=== PATIENT | male | born 1950 | race Caucasian/White ===

== ENCOUNTER 2018-04-18 16:58 | Emergency (ER) | payer BC, SELFPAY ==
[2018-04-18 17:05] VITALS: BP 174/55; PULSE 54; RESP 18; TEMP 37.4; O2SAT 98
--- NOTE | 2018-04-18 17:17 | DI.CT_ITS ---
SYMPTOMS/DIAGNOSIS: FALL, HIT LT SIDE OF HEAD, DOUBLE VISION LT EYE NONCONTRAST HEAD CT: No intracranial hemorrhage or skull fracture is seen. There is mild atrophy. The ventricles are normal in size. There is soft tissue swelling above the left orbit. The mastoid air cells appear clear. There is some mucous retention at the floor of the right maxillary sinus. IMPRESSION: Soft tissue swelling above the left orbit. No acute intracranial abnormality. CT CERVICAL SPINE: There is no evidence of fracture or subluxation. Degenerative disc changes are noted throughout, prominent at C4-5 through C6-7. There is neural foraminal narrowing at these levels. There is some reversal of the normal cervical lordosis secondary to degenerative changes. There are also prominent facet joint degenerative changes, greatest at C3-4. The airway appears intact. The lung apices appear clear. IMPRESSION: Degenerative changes. No acute abnormality.
--- NOTE | 2018-04-18 17:20 | W.ED.GENAD ---
Discharge Plan Disposition Patient Disposition: HOME Condition: Good Discharge Details Chief Complaint: EyeProblem Clinical Impression: Fall, Double vision Primary Care Provider: Christine Maldonado ED Provider: Balwinder Peraza Home Meds and New Rx's Prescriptions: No Action simvastatin 10 mg Tablet 10 mg PO QPM RF: 0 tamsulosin 0.4 mg Capsule 1 tab PO DAILY RF: 0 hydrochlorothiazide 25 mg Tablet 25 mg PO DAILY RF: 0 lisinopril-hydrochlorothiazide 10-12.5 mg Tablet RF: 0 Discharge Instructions Instructions: [facility] (ED) Additional Instructions: Please follow-up immediately with the study specialist. Please call them Saturday morning. If you notice any worsening of your symptoms, or any new symptoms such as vomiting, diarrhea, fever, chills, shortness of breath, chest pain, numbness, weakness, or fainting , please return immediately to the emergency department for reevaluation. Please follow up with your primary care provider as soon as possible for reassessment and reevaluation. As always, it was a pleasure participating in your medical care today. Referrals: [facility] [OTHER] - Medical Decision Making This is a very pleasant 68-year-old male who presents for evaluation of double vision in his left eye only. It began when he fell roughly 10-15 feet off of a ladder, he had no loss of consciousness but he did scrape the right side of his face against a ladder. He also complains of a small amount of pain over his fourth toe on his right foot. Physical exam demonstrates no red flags of neurologic deficit, hemotympanum, or other abnormalities on limited bedside ocular ultrasound or physical exam. Patient does though have subjective double vision in his left eye on exam. The remainder of his exam is otherwise benign and unremarkable. We will get a CT scan of his head and neck, and x-ray of his foot to rule out any acute process. I feel that the patient will benefit from ophthalmology referral pending workup. 6:[address] scan of the head and neck is negative for any acute process. The patient demonstrates no neurologic deficits. No evidence of bleeding behind the eye, no signs of entrapment, no evidence of intracranial bleed. X-ray of the foot is negative for acute process. I do feel for the foot patient developed a mild bruise secondary to the fall, but no acute fracture. Recommend continued ice, Tylenol, and Motrin. Regards to the double vision with no acute neurologic process identified on exam or imaging, I feel he can be discharged with close ophthalmology follow-up. I feel his symptoms are most likely peripheral in origin. With no evidence of hyphema, retinal detachment, or other acute process on CT imaging I feel that close follow-up is reasonable. I have extensively reviewed the treatment plan and discharge instructions with the patient and their family. I have addressed all patient concerns at this time. The patient and family was made aware of what symptoms to monitor for that would warrant a return to the emergency department. Discussed the plan with the patient and family, they demonstrate verbal understanding and agreement with our assessment and plan at this time. Ocular US Exam type: diagnostic\par Indication for exam: vision complaint Views obtained: Eye transverse and longitudinal Findings and interpretations: all views were adequate. Retinal contour was normal. Vitreous body was anechoic. Lens was well positioned. No evidence of lens dislocation or retinal detachment. Optic nerve was measured and found to be less than 5mm. The patient tolerated the procedure well and there were no complications. COMPARISON: No relevant prior studies available. FINDINGS: Bones/joints: Degenerative changes in the tarsal bones There is no evidence of acute fracture.. There is no evidence of malalignment or dislocation. Soft tissues: Normal. IMPRESSION: There is no evidence of acute fracture.. Dictated and Authenticated by: Roxie Mccray MD. COMPARISON: No relevant prior studies available. FINDINGS: Brain: No acute intracranial hemorrhage. There is mild diffuse heterogeneity of the white matter attenuation, consistent with chronic white matter ischemic changes. Ventricles: Normal. No ventriculomegaly. Bones/joints: Normal. No acute fracture. Sinuses: Mucosal thickening in the right maxillary sinus may represent mild sinusitis Mastoid air cells: Normal as visualized. No mastoid effusion. Soft tissues: Extracalvarial soft tissue swelling anteriorly on the left. IMPRESSION: 1. Extracalvarial soft tissue swelling anteriorly on the left. 2. No acute intracranial hemorrhage. COMPARISON: No relevant prior studies available. FINDINGS: Vertebrae: No acute fracture of the cervical spine. No subluxation or dislocation of the cervical spine. Anterior osteophyte formation C4-C7 Degenerative changes in the facets at multiple levels Degenerative changes at C1/C2 Discs/Spinal canal/Neural foramina: Intervertebral disc space narrowing C4-C7 may represent degenerative disc disease.. Posterior osteophyte formation C3 to -C7 Soft tissues: Unremarkable. Thyroid: The thyroid is unremarkable Lungs: Lung apices are normal. IMPRESSION: 1. No acute fracture of the cervical spine. 2. No subluxation or dislocation of the cervical spine. 3. Intervertebral disc space narrowing C4-C7 may represent degenerative disc disease. Recommend MRI if clinically indicated. Thank you for allowing us to participate in the care of your patient. HPI General Date/Time Provider Initiated Documentation: 04/18/18 17:00. HPI Narrative: This is a pleasant 68-year-old male with no significant past medical history except for high blood pressure and high cholesterol who presents today for evaluation after a fall. The patient states that he was roughly 15 feet off the ground when he fell off a ladder, hit the left side of his face on a ladder, as well as hitting his fourth toe on his right foot. This occurred 3 days ago. He has been doing fine since then except he has noticed some double vision only in his left eye when the right eye is closed. He denies any headache, neck pain, numbness, tingling, weakness, chest pain, shortness of breath, arm neck or shoulder pain. He denies any leg, reese, femur, or pelvic pain. He does have pain near the fourth toe. He also admits to some mild swelling there. Patient denies seeing any dark curtains over his vision, lightning spots, tinnitus, or other complaints. No other modifying factors. He is not on any blood thinners. He was sent by his primary care provider today for further evaluation after his history of complaints. Related Data Home Medications Medication Instructions Recorded Confirmed hydrochlorothiazide 25 mg PO DAILY 04/18/18 lisinopril-hydrochlorothiazide 04/18/18 simvastatin 10 mg PO QPM 04/18/18 04/18/18 tamsulosin 1 tab PO DAILY 04/18/18 04/18/18 Allergies Allergy/AdvReac Type Severity Reaction Status Date / Time No Known Allergies Allergy Unverified 04/18/18 17:09 General Stated Complaint: EyeProblem CARLOS: 3 Review of Systems Review of Systems All systems reviewed & are unremarkable except as noted in HPI and below PFSH Social History Smoking/Tobacco Use Status: Never Exam Narrative Exam Narrative: 1.Const: Well-nourished, Well-developed, appearing stated age 2.Eyes: PERRL, no conjunctival injection, and symmetrical lids. 3.ENT: Atraumatic external nose and ears. Moist MM. Neck: Symmetric, trachea midline, No thyromegaly. There is no evidence of raccoon eyes, reyes sign, CSF rhinorrhea, mastoid tenderness, cranial crepitus, hemotympanum, exophthalmos, or hyphema. Patient demonstrates intact dentition with no signs of tooth avulsion or fracture, no signs of jaw deformity, no evidence of a LeFort's fracture, with an intact palate, nose and orbital region. There is no evidence of a nasal septal hematoma. No proptosis. Jaw closes symmetrically. Airway is clear. Eye: EOMI, PERRL, Peripheral vision intact. No nystagmus. Fundoscopic exam shows normal optic discs and normal vasculature. No external signs of preseptal cellulitis, no redness around the eye, no proptosis. No hyphema, no signs of trauma around the eye, no periorbital emphysema. Visual acuity as documented in chart. 4.CVS regular rate and rhythm, Normal s1 and s2. No murmurs, carotid bruits, rubs, or gallops. Radial pulses 2+ bilaterally and symmetric. Dorsalis pedis pulses 2+ bilaterally and symmetric. 2+ capillary refill. No evidence of distant heart sounds. No extremity edema. No evidence of gross hemorrhage. 5.RESP: Airway clear, no obstructions. No abrasions or ecchymosis. Chest movement symmetric with respirations. No chest wall tenderness. Trachea midline. No crepitus. No step offs. No paradoxical movements. Lungs are clear to auscultation bilaterally. No rales, rhonchi, wheezing or stridor. Breath sound symmetric. No Sucking chest wounds. No clinical evidence of significant chest trauma. 6.GI: Soft, Nontender/Nondistended, No hepatosplenomegaly. No guarding or rebound. 7.MSK: Normocephalic/Atraumatic, Extremities w/o deformity or ttp No cyanosis or clubbing, Normal movement of all extremities. Minimal swelling over the fourth toe on the right foot. No evidence of deformity, or bleeding. Normal sensation throughout. Brisk capillary refill no midline tenderness to palpation over the CTLS spine. Normal ROM in flexion, extension, side bend, and rotation. Patient has +5 out of 5 strength in the lower extremities in dorsiflexion and plantarflexion, knee flexion and extension, hip flexion and extension. There is +2 over 2 dorsalis pedis pulses bilaterally. There is normal sensation to the skin with light touch at the foot, knee, and hip. Normal saddle sensation. Good sensation over the deep sural nerve area bilaterally. Rectal exam deferred. Reflexes are +2 over 4 in the patellar reflex bilaterally. +5 out of 5 strength in the medial, ulnar, radial nerve distribution bilaterally in the hands as well as intact light touch sensation to these dermatomes on the hands 8.Skin: Warm, Dry. No rashes or lesions. Bruises noted over the left side of the patient's face with a small superficial abrasion. 9.Neuro: topography technician II-XII grossly intact. Sensation grossly intact, no focal neurologic deficits. All 6 cardinal planes of vision are fully intact. No evidence of rotatory or vertical nystagmus. The patient demonstrated a normal [id number], good dexterity. There was no evidence of dysdiadochokinesia. Patient was able to ambulate without difficulty. There was no wide-based gait. Romberg, and [id number] are both normal on testing. Sensation was intact bilaterally as well as muscle strength bilaterally for all extremities. Patient was able to verbalize butter cup with no slurring, or miss pronunciation. 10.Psych: (AAO) x3. Appropriate mood and affect Course Vital Signs Temperature 37.4 C 04/18/18 17:05 Pulse 54 L 04/18/18 17:05 Respiratory Rate 18 04/18/18 17:05 Blood Pressure 174/55 H 04/18/18 17:05 Pulse Oximetry 98 04/18/18 17:05 Temperature 37.4 C 04/18/18 17:05 Temperature Source Temporal Artery Scan 04/18/18 17:05 Pulse 54 L 04/18/18 17:05 Respiratory Rate 18 04/18/18 17:05 Blood Pressure 174/55 H 04/18/18 17:05 Blood Pressure Position Sitting 04/18/18 17:05 Pulse Oximetry 98 04/18/18 17:05 Oxygen Delivery Method Room Air 04/18/18 17:05 Oxygen Flow Rate 0 04/18/18 17:05
--- NOTE | 2018-04-18 17:30 | DI.RAD_ITS ---
SYMPTOMS/DIAGNOSIS: PAIN AT 4TH TOE RIGHT FOOT: No fracture or dislocation is seen. Degenerative changes are noted at the first MTP joint. There are ossicle adjacent to the cuboid. IMPRESSION: No acute abnormality.
--- NOTE | 2018-04-18 18:02 | DI.VRAD_ITS ---
EXAM: XR Right Foot Complete, 3 or more Views EXAM DATE/TIME: 04/18/2018 5:31 PM CLINICAL HISTORY: 68 years old, male; Pain; Foot; Right; Patient HX: Pain at 4th toe TECHNIQUE: XR Right foot 3 or more views. COMPARISON: No relevant prior studies available. FINDINGS: Bones/joints: Degenerative changes in the tarsal bones There is no evidence of acute fracture.. There is no evidence of malalignment or dislocation. Soft tissues: Normal. IMPRESSION: There is no evidence of acute fracture.. Dictated and Authenticated by: Roxie Mccray MD. Ordering:ANAID Britt MD
--- NOTE | 2018-04-18 18:07 | DI.VRAD_ITS ---
EXAM: CT Head Without Contrast EXAM DATE/TIME: 04/18/2018 5:18 PM CLINICAL HISTORY: 68 years old, male; Injury or trauma; Fall; Initial encounter; Blunt trauma; Injury details: Fell, hit left head; Patient HX: Fell, hit left head, bruising to left eye orbit; Additional info: Double vision in left eye TECHNIQUE: Axial computed tomography images of the head/brain without contrast. Coronal and sagittal reformatted images were created and reviewed. COMPARISON: No relevant prior studies available. FINDINGS: Brain: No acute intracranial hemorrhage. There is mild diffuse heterogeneity of the white matter attenuation, consistent with chronic white matter ischemic changes. Ventricles: Normal. No ventriculomegaly. Bones/joints: Normal. No acute fracture. Sinuses: Mucosal thickening in the right maxillary sinus may represent mild sinusitis Mastoid air cells: Normal as visualized. No mastoid effusion. Soft tissues: Extracalvarial soft tissue swelling anteriorly on the left. IMPRESSION: 1. Extracalvarial soft tissue swelling anteriorly on the left. 2. No acute intracranial hemorrhage. EXAM: CT Cervical Spine Without Contrast EXAM DATE/TIME: 04/18/2018 5:18 PM CLINICAL HISTORY: 68 years old, male; Injury or trauma; Fall; Initial encounter; Blunt trauma; Injury details: Fell, hit left head; Patient HX: Fell, hit left head, bruising to left eye orbit; Additional info: Double vision in left eye TECHNIQUE: Axial computed tomography images of the cervical spine without intravenous contrast. Coronal and sagittal reformatted images were created and reviewed. COMPARISON: No relevant prior studies available. FINDINGS: Vertebrae: No acute fracture of the cervical spine. No subluxation or dislocation of the cervical spine. Anterior osteophyte formation C4-C7 Degenerative changes in the facets at multiple levels Degenerative changes at C1/C2 Discs/Spinal canal/Neural foramina: Intervertebral disc space narrowing C4-C7 may represent degenerative disc disease.. Posterior osteophyte formation C3 to -C7 Soft tissues: Unremarkable. Thyroid: The thyroid is unremarkable Lungs: Lung apices are normal. IMPRESSION: 1. No acute fracture of the cervical spine. 2. No subluxation or dislocation of the cervical spine. 3. Intervertebral disc space narrowing C4-C7 may represent degenerative disc disease. Recommend MRI if clinically indicated. Dictated and Authenticated by: Roxie Mccray MD. Ordering:ANAID Britt MD
--- NOTE | 2018-04-18 18:28 | NUR.NOTE ---
Nursing Note: [place] at the bedside with patient.
--- NOTE | 2018-04-21 09:13 | PDOC.ERCMPRO ---
Care Management Progress Note 04/21-Dr. Peraza requested assistance with a [facility] f/u appt within one week for double vision in right eye. Referral, demographics, and provider note faxed to [facility] this am.
== END 2018-04-18 18:39 | disposition home or self-care (01) ==
PROVIDERS: Emergency Provider Student in an Organized Health Care Education/Training Program; PCP Physician Assistant Medical
DX: H53.2 Diplopia (principal); S90.121A Contusion of right lesser toe(s) without damage to nail, initial encounter; W11.XXXA Fall on and from ladder, initial encounter; I10 Essential (primary) hypertension
CPT/HCPCS: 99284; 70450; 72125; 73630; 99285